=== PATIENT | male | born 1990 | race Caucasian/White ===

== ENCOUNTER → 2017-01-16 | Outpatient (REF) | payer OTHER ==
[2017-01-18 12:30] LABS: HEPATITIS B SURFACE ANTIBODY POSITIVE (POSITIVE)
== END ==
LOC: M SFHCLERA 11:17
PROVIDERS: ATTEND Family Medicine
DX: Z20.2 Contact with and (suspected) exposure to infections with a predominantly sexual mode of transmission (principal); Z71.89 Other specified counseling

== ENCOUNTER → 2017-01-19 | Outpatient (REF) | payer OTHER | LOC: M SFHCLERA 19:02 | PROVIDERS: ATTEND Family Medicine | DX: Z71.89 Other specified counseling (principal) ==

== ENCOUNTER 2018-06-30 00:33 | Emergency (ER) | payer OTHER ==
[2018-06-30] MEDS ORDERED: LIDOCAINE 1% MDV 20ML VIAL As Ordered (01:04)
[2018-06-30] MEDS: LIDOCAINE 1% MDV 20ML VIAL SC (02:30)
== END 2018-06-30 02:46 | disposition home or self-care (01) ==
LOC: M ED 00:33
DX: S01.81XA Laceration without foreign body of other part of head, initial encounter (principal); W01.0XXA Fall on same level from slipping, tripping and stumbling without subsequent striking against object, initial encounter; Y92.410 Unspecified street and highway as the place of occurrence of the external cause
CPT/HCPCS: 70450

== ENCOUNTER 2019-10-09 19:45 | Emergency (ER) | payer OTHER ==
[~2019-10-09] VITALS: Ht 185.4 cm; Wt 85.8 kg
[2019-10-09 19:46] VITALS: BP 170/87
[2019-10-09] MEDS ORDERED: KETOCONAZOLE 2% CREAM TOP STA (21:46)
[2019-10-09] MEDS ORDERED: KETO2CR TOP (21:52)
[2019-10-09] MEDS ORDERED: KEFL500C17 PO (21:52)
[2019-10-09] MEDS ORDERED: CEPHALEXIN 500 MG CAP PO ONE (22:00)
[2019-10-09] MEDS ORDERED: FLUCONAZOLE 50MG TABLET PO ONE (22:00)
== END 2019-10-09 22:24 | disposition home or self-care (01) ==
LOC: M ED 19:45
DX: B35.9 Dermatophytosis, unspecified (principal); R21 Rash and other nonspecific skin eruption; Z79.899 Other long term (current) drug therapy

== ENCOUNTER → 2020-09-29 | Outpatient (REF) | payer OTHER, SELFPAY ==
[~2020-09-29] MED LIST: KEFL500C17 PO; KETO2CR TOP
[2020-09-29 10:51] LABS: SEMEN APPEARANCE OPAQUE (OPAQUE); SEMEN VISCOSITY VISCOUS (LIQUID); SEMEN VOLUME 2.5 ml (2.0-5.0); SPERM CONCENTRATION 56.8 M/ml (>=15.0); WBC CONCENTRATION <=1 M/ml (<=1 M/ml)
== END ==
LOC: M SFHCWAGY 09:27
PROVIDERS: ATTEND Advanced Practice Midwife
DX: N46.9 Male infertility, unspecified (principal)

== ENCOUNTER → 2025-09-26 | Outpatient (CLI) | payer BC | LOC: M WUC 15:45 | PROVIDERS: ATTEND Chiropractor | DX: M25.532 Pain in left wrist (principal) ==